=== PATIENT | male | born 1970 | race African-American/Black ===

== ENCOUNTER 2020-05-09 13:43 | Emergency (ER) | payer MEDICAID ==
[~2020-05-09] VITALS: Ht 170.2 cm; Wt 77.3 kg
[~2020-05-09 13:43] MED LIST: NOCURR
[2020-05-09 13:49] VITALS: BP 161/115
== END 2020-05-09 15:15 | disposition left against medical advice (07) ==
LOC: EMS 13:52
DX: R42 Dizziness and giddiness (principal); Z53.21 Procedure and treatment not carried out due to patient leaving prior to being seen by health care provider